=== PATIENT | male | born 1995 | race Caucasian/White ===

== ENCOUNTER 2022-10-21 16:09 | Emergency (ER) | payer OTHER ==
[~2022-10-21] VITALS: Ht 175.3 cm; Wt 74.0 kg
[2022-10-21 16:51] LABS: BASOPHILS % 0.1 % (0.0-2.0); HEMATOCRIT. 47.5 % (42.0-52.0); HEMOGLOBIN. 16.5 g/dL (14.0-18.0); LYMPHOCYTES % 10.6 % (20.0-50.0); MEAN CORPUSCULAR HEMOGLOBIN 28.9 pg (28.0-32.0); MEAN CORPUSCULAR VOLUME 83.1 fL (80.0-94.0); MEAN PLATELET VOLUME 8.5 fl (7.4-10.4); MONOCYTES % 6.7 % (2.0-8.0); NEUTROPHILS % 82.6 % (40.0-76.0); PLATELET 142 x1000/uL (130-400); RED BLOOD CELL COUNT 5.72 mill/uL (4.7-6.1); RED CELL DISTRIBUTION WIDTH 13.9 % (11.6-14.6)
[2022-10-21 16:56] LABS: CHLORIDE 98 mEq/L (98-107)
[2022-10-21] MEDS ORDERED: VISCOUS LIDOCAINE 2% 15 ML UDC PO NR (17:55)
[2022-10-21] MEDS ORDERED: MAGNESIUM/ALUMINUM HYDROXIDE/SIMETHICONE 30ML UDC PO NR (17:55)
[2022-10-21] MEDS ORDERED: ONDANSETRON HCL 4MG/2ML INJ IV NR (17:55)
[2022-10-21] MEDS ORDERED: POTASSIUM CHLORIDE 20MEQ TABLET SR PO NR (18:00)
[2022-10-21] MEDS ORDERED: PANTOPRAZOLE SODIUM 40 MG/VIAL IV NR (18:00)
[2022-10-21] MEDS ORDERED: SODIUM CHLORIDE 0.9% 1,000 ML IV ONE (18:00)
[2022-10-21] MEDS ORDERED: ONDANSETRON 4MG ODT PO NR (18:00)
[2022-10-21 19:03] LABS: CLARITY URINE CLEAR (CLEAR); COLOR URINE DARK YELLOW (YELLOW); KETONES URINE 1+ (NEGATIVE); LEUKOCYTE ESTERASE URINE NEGATIVE (NEGATIVE); NITRITE URINE NEGATIVE (NEGATIVE); OCCULT BLOOD URINE 2+ (NEGATIVE); PROTEIN URINE 3+ (NEGATIVE); SPECIFIC GRAVITY URINE 1.029 (1.005-1.030)
[2022-10-21 19:15] LABS: *AMPHETAMINES SCREEN URINE NEGATIVE (NEGATIVE); *BARBITURATES SCREEN URINE NEGATIVE (NEGATIVE); *BENZODIAZEPINES SCREEN URINE NEGATIVE (NEGATIVE); *COCAINE SCREEN URINE NEGATIVE (NEGATIVE); CANNABINOID URINE SCREEN PRESUMTIVE POSITIVE (NEGATIVE); METHADONE URINE SCREEN NEGATIVE (NEGATIVE); OPIATES URINE SCREEN NEGATIVE (NEGATIVE); PHENCYCLIDINE URINE SCREEN NEGATIVE (NEGATIVE)
[2022-10-21] MEDS ORDERED: LEVO-65 MT (21:43)
[2022-10-21] MEDS ORDERED: DOXY100C5 MT (21:43)
[2022-10-21] MEDS ORDERED: PANTOPRAZOLE SODIUM 40 MG/VIAL IV ONE (21:45)
[2022-10-21] MEDS ORDERED: ONDANSETRON HCL 4MG/2ML INJ IV ONE (21:45)
[2022-10-21] MEDS: CEFTRIAXONE 1GM PREMIX 50 ML IV NR ×2 (21:52→22:13)
[2022-10-21 22:19] VITALS: BP 113/60
== END 2022-10-21 22:43 | disposition home or self-care (01) ==
LOC: ER 16:09
DX: R10.13 Epigastric pain (principal); R11.2 Nausea with vomiting, unspecified; Z79.899 Other long term (current) drug therapy
CPT/HCPCS: 36415; 74176; 76705; 80053; 80305; 80307; 80329; 81003; 83690; 85025; 96361; 96365; 96375; 96376; 99285; C9113; J0696; J2405; Z7610

== ENCOUNTER 2023-12-12 19:41 | Emergency (ER) | payer MEDICAID, OTHER ==
[~2023-12-12] VITALS: Ht 175.3 cm; Wt 78.0 kg
[~2023-12-12 19:41] MED LIST: DOXY100C5 MT; LEVO-65 MT
[2023-12-12 19:46] VITALS: O2SAT 100
[2023-12-12] MEDS ORDERED: MORPHINE SULFATE 4 MG/ML INJ (FOR IV/IM USE) IM ONE (20:15)
[2023-12-12] MEDS: LIDOCAINE HCL/EPINEPHRINE 1%-EPI 1:100,000 20 ML VIAL INFIL ONE (20:27)
[2023-12-12] MEDS: ACETAMINOPHEN 325MG TABLET PO ONE (20:27)
[2023-12-12] MEDS: KETOROLAC 30MG/ML VIAL IV ONE (22:01)
[2023-12-12 22:20] VITALS: BP 130/80; PULSE 89; RESP 18; TEMP 98.7
[2023-12-12] MEDS ORDERED: TOPUD PO (22:35)
[2023-12-12] MEDS ORDERED: IBUP-2028 MT (22:35)
== END 2023-12-12 22:50 | disposition home or self-care (01) ==
LOC: ER 19:41
DX: S01.81XA Laceration without foreign body of other part of head, initial encounter (principal); F12.10 Cannabis abuse, uncomplicated; Y08.89XA Assault by other specified means, initial encounter; Y93.89 Activity, other specified; Y92.89 Other specified places as the place of occurrence of the external cause; Y99.8 Other external cause status
CPT/HCPCS: 99285; 70450; 96374; 71045; 73030; 70486; 72125; 12001; 12011; J1885; J3490

== ENCOUNTER 2023-12-23 09:36 | Emergency (ER) | payer MEDICAID ==
[~2023-12-23] VITALS: Ht 175.3 cm; Wt 66.0 kg
[~2023-12-23 09:36] MED LIST changes: +IBUP-2028 MT; +TOPUD PO
[2023-12-23 09:39] VITALS: O2SAT 100
[2023-12-23 10:29] VITALS: BP 120/60; PULSE 68; RESP 18; TEMP 98.1
== END 2023-12-23 10:53 | disposition home or self-care (01) ==
LOC: ER 09:36
DX: S01.81XD Laceration without foreign body of other part of head, subsequent encounter (principal); F12.90 Cannabis use, unspecified, uncomplicated; X58.XXXD Exposure to other specified factors, subsequent encounter
CPT/HCPCS: 99281; Z7610 ×2